=== PATIENT | female | born 1985 | race Caucasian/White ===

== ENCOUNTER 2024-09-12 15:55 | Emergency (ER) | payer MEDICAID ==
[~2024-09-12] VITALS: Ht 157.5 cm; Wt 78.0 kg
[2024-09-12 16:14] VITALS: TEMP 36.8; O2SAT 100
[2024-09-12] MEDS: IBUPROFEN 600MG TABLET PO ONE (18:47)
[2024-09-12 18:49] VITALS: BP 139/78; PULSE 89; RESP 18
[2024-09-12] MEDS ORDERED: IBUP-2029 MT (19:08)
== END 2024-09-12 19:53 | disposition home or self-care (01) ==
LOC: ER 15:55
DX: S40.012A Contusion of left shoulder, initial encounter (principal); S09.8XXA Other specified injuries of head, initial encounter; V43.52XA Car driver injured in collision with other type car in traffic accident, initial encounter; Y93.89 Activity, other specified; Y92.89 Other specified places as the place of occurrence of the external cause; Y99.8 Other external cause status
CPT/HCPCS: 73030; 99283